=== PATIENT | male | born 1960 | race Asian ===

== ENCOUNTER → 2016-06-30 | Day surgery (SDC) | payer BC ==
[~2016-06-30] MED LIST: ALLOPURINOL300 MG PO; AMLODIPINE BES2.5 MG; ATORVASTATIN CA10 MG PO; HYDROCHLOROTHIA25 MG PO; ZYLOPRIM100 MG DOB
--- NOTE | ~2016-06-30 | OR ---
Unit #: [id number] #: [id number] Patient: MILLY FARRELL [id number] [address] [address] [id number] O MR#: [id number] NAME: MILLY FARRELL ROOM: Date of Procedure: 06/30/2016 Admission Date: 06/30/2016 Surgeon: Adria Dougherty M.D. : 1960 Attending Physician: Adria Dougherty M.D. Primary Care Physician: Isak Treadwell M.D. OPERATIVE REPORT PREOPERATIVE DIAGNOSIS Screening colonoscopy. POSTOPERATIVE DIAGNOSIS Screening colonoscopy. PROCEDURE PERFORMED Colonoscopy to cecum. ANESTHESIA Monitored anesthesia care. FINDINGS The patient had normal colonoscopy to cecum. SPECIMENS None. COMPLICATIONS None apparent. CONDITION The patient tolerated the procedure well. INDICATIONS FOR PROCEDURE The patient is a 55-year-old [place] male, who presents at this time for screening colonoscopy. DESCRIPTION OF PROCEDURE After obtaining informed consent through the patient's digester hand named Pablo Holden. The patient was brought to the endoscopy suite and after adequate monitored anesthesia care, had the colonoscope placed through the anus and advanced to the level of the cecum without difficulty with the lumen always in view. The cecum was normal as was the ileocecal valve. The ascending colon was normal as was the hepatic flexure, transverse colon, splenic flexure, descending colon, sigmoid colon, and rectum. On retroflexing in the rectum to the anorectal junction, there was no abnormality seen. The scope was removed without difficulty. On digital examination, there was good sphincter tone. No masses palpable. The patient went from the endoscopy suite to the recovery area in stable condition. Unit #: [id number] #: [id number] Patient: MILLY FARRELL RECOMMENDATIONS High-fiber diet, lots of liquids, tucks or wipes p.r.n. Follow up p.r.n. Dictated by... Shawn Morton/marlenyl TD: 07/01/2016 01:28 JOB #: [id number] CC: [facility] OPERATIVE REPORT Page 1 of 1 X Adria Dougherty MD PROCEDURE OPERATIVE NOTE
== END | disposition home or self-care (01) ==
LOC: COPS 10:18
PROVIDERS: Surgery
PROC: 0DJD8ZZ Inspection of Lower Intestinal Tract, Via Natural or Artificial Opening Endoscopic (ICD-10-PCS; principal; 2016-06-30 12:00)
DX: Z12.11 Encounter for screening for malignant neoplasm of colon (principal); I10 Essential (primary) hypertension; E78.00 Pure hypercholesterolemia, unspecified; K21.9 Gastro-esophageal reflux disease without esophagitis; E11.9 Type 2 diabetes mellitus without complications; Z79.84 Long term (current) use of oral hypoglycemic drugs; G47.30 Sleep apnea, unspecified; Z79.899 Other long term (current) drug therapy; Z80.1 Family history of malignant neoplasm of trachea, bronchus and lung; Z88.8 Allergy status to other drugs, medicaments and biological substances; Z98.890 Other specified postprocedural states
CPT/HCPCS: J2250